=== PATIENT | female | born 1965 | race African-American/Black ===

== ENCOUNTER 2023-08-05 14:59 | Emergency (ER) | payer SELFPAY ==
[~2023-08-05] VITALS: Ht 167.6 cm; Wt 66.0 kg
[2023-08-05 15:05] VITALS: TEMP 98.2; O2SAT 98
[2023-08-05] MEDS ORDERED: KETOROLAC 60MG/2ML VIAL IM STA (15:41)
[2023-08-05] MEDS ORDERED: HYDROCODONE/ACETAMINOPHEN 5/325MG TABLET PO STA (15:41)
[2023-08-05 17:23] VITALS: BP 127/81; PULSE 69; RESP 16
== END 2023-08-05 21:22 | disposition home or self-care (01) ==
LOC: ER 14:59
DX: S30.0XXA Contusion of lower back and pelvis, initial encounter (principal); I10 Essential (primary) hypertension; Z90.49 Acquired absence of other specified parts of digestive tract; Z90.710 Acquired absence of both cervix and uterus; W18.39XA Other fall on same level, initial encounter; Y93.89 Activity, other specified; Y92.89 Other specified places as the place of occurrence of the external cause; Y99.8 Other external cause status
CPT/HCPCS: 99285; 74176; 96372; J1885